=== PATIENT | female | born 1950 | race Caucasian/White ===

== ENCOUNTER 2023-08-05 09:35 | Inpatient (IN) | payer BC, MEDICARE ==
[2023-08-05] MEDS ORDERED: Sodium Chloride 0.9% 10 ML Syringe FLUSH PRN (09:43)
[2023-08-05] MEDS ORDERED: Meclizine 25 MG Tab PO ONE (09:44)
[2023-08-05 10:01] LABS: BASOPHILS ABSOLUTE AUTO 0.01 K/uL (0.00-0.20); BASOPHILS PERCENT AUTO 0.2 % (0.0-2.0); EOSINOPHILS ABSOLUTE AUTO 0.01 K/uL (0.00-0.50); EOSINOPHILS PERCENT AUTO 0.2 % (0.0-5.0); HEMATOCRIT 41.8 % (34.0-46.0); HEMOGLOBIN 14.7 g/dL (11.7-15.5); LYMPHOCYTES ABSOLUTE AUTO 1.64 K/uL (0.50-3.50); LYMPHOCYTES PERCENT AUTO 31.5 % (10.0-50.0); MEAN CORPUSCULAR HEMOGLOBIN 28.5 pg (28.2-33.3); MEAN CORPUSCULAR HGB CONC 35.2 g/dL (31.7-36.0); MONOCYTES ABSOLUTE AUTO 0.56 K/uL (0.00-1.00); MONOCYTES PERCENT AUTO 10.7 % (2.0-14.0); NEUTROPHILS ABSOLUTE AUTO 2.99 K/uL (1.40-7.00); NEUTROPHILS PERCENT AUTO 57.4 % (45.0-80.0); PLATELET COUNT,PLT 148 K/uL (150-350); RED BLOOD CELL COUNT 5.16 M/uL (3.77-5.09); RED CELL DISTRIBUTION WIDTH 13.1 % (11.2-14.1); WHITE BLOOD CELL COUNT,WBC 5.2 K/uL (4.0-10.2)
[2023-08-05] MEDS ORDERED: Sodium Chloride 0.9% 500 ML IV SCH (10:15)
[2023-08-05 10:23] LABS: ALBUMIN 3.2 g/dL (3.4-5.0); CALCIUM 9.3 mg/dL (8.5-10.1); CARBON DIOXIDE,CO2 30.4 mmol/L (21.0-32.0); CREATININE 2.03 mg/dL (0.51-1.17); EST CRCL DRUG DOSING (CG) 18.94 mL/min; MAGNESIUM 2.1 mg/dL (1.8-2.4); PROTEIN TOTAL,TP 7.2 g/dL (6.4-8.2)
[2023-08-05 10:26] LABS: ANION GAP 12.8 meq/L (7-15); POTASSIUM,K 2.2 mmol/L (3.5-5.1)
[2023-08-05] MEDS ORDERED: Potassium Bicarbonate/Cit Ac 20 MEQ Effervescent Tab PO ONE ×8 (10:26→23:00)
[2023-08-05] MEDS ORDERED: Acetaminophen 325 MG Tab PO ONE (10:35)
[2023-08-05 10:49] LABS: CORONAVIRUS COVID-19 NAA NEGATIVE (NEGATIVE); INFLUENZA A NAA POSITIVE (NEGATIVE); INFLUENZA B NAA NEGATIVE (NEGATIVE); RESPIRATORY SYNCYTIAL VIR NAA NEGATIVE (NEGATIVE)
[2023-08-05] MEDS ORDERED: Ondansetron 4 MG/2 ML SDV IVPUSH PRN (12:00)
[2023-08-05] MEDS: Sodium Chloride 0.9% 1,000 ML IV SCH ×2 (12:10→22:28)
[2023-08-05] MEDS ORDERED: Nitroglycerin 0.4 MG Tab.SL SL SCH (13:30)
[2023-08-05] MEDS ORDERED: Meclizine 25 MG Tab PO PRN (16:00)
[2023-08-05] MEDS: Metoprolol Tartrate 25 MG Tab PO SCH ×2 (17:20→17:27)
[2023-08-05] MEDS: Acetaminophen 325 MG Tab PO PRN (19:24)
[2023-08-05 19:44] LABS: BILIRUBIN,URINE NEGATIVE (NEGATIVE); COLOR,URINE YELLOW; GLUCOSE,URINE 500 mg/dL (NEGATIVE); KETONES,URINE NEGATIVE (NEGATIVE); LEUKOCYTE ESTERASE,URINE TRACE (NEGATIVE); NITRITE,URINE NEGATIVE (NEGATIVE); OCCULT BLOOD,URINE SMALL (NEGATIVE); PH,URINE 6.5 (5.0-9.0); PROTEIN,URINE >=300 mg/dL (NEGATIVE)
[2023-08-05 20:00] LABS: APPEARANCE,URINE TURBID
[2023-08-05] MEDS ORDERED: Insulin Glarg,Human.Rec.Analog 100 Unit/ML 10 ML Vial SUBCUT SCH (20:00)
[2023-08-05 20:01] LABS: RBC,URINE 0-5 /HPF
[2023-08-05 20:02] LABS: BACTERIA,URINE FEW /HPF (NONE TO FEW); WBC,URINE 20-30 /HPF
[2023-08-06] MEDS ORDERED: Potassium Bicarbonate/Cit Ac 20 MEQ Effervescent Tab PO ONE ×5 (06:00→20:00)
[2023-08-06] MEDS: Clopidogrel 75 MG Tab PO SCH (07:35)
[2023-08-06 07:54] LABS: ANION GAP 7.9 meq/L (7-15); CALCIUM 8.8 mg/dL (8.5-10.1); CARBON DIOXIDE,CO2 33.6 mmol/L (21.0-32.0); CREATININE 1.73 mg/dL (0.51-1.17); EST CRCL DRUG DOSING (CG) 24.26 mL/min; POTASSIUM,K 3.5 mmol/L (3.5-5.1)
[2023-08-06] MEDS: Metoprolol Tartrate 25 MG Tab PO SCH ×2 (08:30→18:25)
[2023-08-06] MEDS: Sodium Chloride 0.9% 1,000 ML IV SCH (10:56)
[2023-08-07] MEDS: Acetaminophen 325 MG Tab PO PRN ×2 (00:30→04:45)
[2023-08-07 07:52] LABS: CALCIUM 8.6 mg/dL (8.5-10.1); CARBON DIOXIDE,CO2 31.4 mmol/L (21.0-32.0); CREATININE 1.52 mg/dL (0.51-1.17); EST CRCL DRUG DOSING (CG) 27.61 mL/min; POTASSIUM,K 3.3 mmol/L (3.5-5.1)
[2023-08-07] MEDS: Metoprolol Tartrate 25 MG Tab PO SCH (07:52)
[2023-08-07] MEDS: Clopidogrel 75 MG Tab PO SCH (07:52)
[2023-08-07 08:10] LABS: ANION GAP 8.9 meq/L (7-15)
[2023-08-07] MEDS ORDERED: Potassium Bicarbonate/Cit Ac 20 MEQ Effervescent Tab PO ONE ×4 (09:38→14:30)
[2023-08-07] MEDS ORDERED: Magnesium Chloride 64 MG Tab.ER PO SCH (12:00)
[2023-08-07 12:53] VITALS: BP 158/69; PULSE 67
== END 2023-08-07 16:04 | disposition home or self-care (01) | DRG 194 ==
LOC: LL.ED 09:35 → LL.MS 11:13
PROVIDERS: ADMIT Emergency Medicine; ATTEND Emergency Medicine
DX: J10.1 Influenza due to other identified influenza virus with other respiratory manifestations (principal); N17.9 Acute kidney failure, unspecified; E86.0 Dehydration; E87.6 Hypokalemia; I25.2 Old myocardial infarction; R51.9 Headache, unspecified; I12.9 Hypertensive chronic kidney disease with stage 1 through stage 4 chronic kidney disease, or unspecified chronic kidney disease; E10.22 Type 1 diabetes mellitus with diabetic chronic kidney disease; E78.5 Hyperlipidemia, unspecified; N18.9 Chronic kidney disease, unspecified; Z79.82 Long term (current) use of aspirin; Z79.899 Other long term (current) drug therapy; Z79.02 Long term (current) use of antithrombotics/antiplatelets; Z11.52 Encounter for screening for COVID-19; Z79.4 Long term (current) use of insulin; Z95.5 Presence of coronary angioplasty implant and graft; Z98.49 Cataract extraction status, unspecified eye; Z90.89 Acquired absence of other organs; Z98.51 Tubal ligation status
CPT/HCPCS: 0241U; 36415; 71045; 80048; 80053; 81001; 81003; 82947; 83605; 83735; 83880; 84132; 84484; 85025; 87086; 93005; 93010; 96360; 97161-GP; 97530-GP; 99285-25; A9270-GY; J1815-GY; J7030; J7040

== ENCOUNTER 2024-12-01 08:55 | Emergency (ER) | payer MEDICARE ==
[2024-12-01 09:48] LABS: BASOPHILS ABSOLUTE AUTO 0.03 K/uL (0.00-0.20); BASOPHILS PERCENT AUTO 0.4 % (0.0-2.0); EOSINOPHILS ABSOLUTE AUTO 0.13 K/uL (0.00-0.50); EOSINOPHILS PERCENT AUTO 1.8 % (0.0-5.0); HEMOGLOBIN 14.3 g/dL (11.7-15.5); IMMATURE GRAN ABSOLUTE AUTO 0.01 10^3/uL (0.00-0.04); IMMATURE GRAN PERCENT AUTO 0.1 % (0.0-0.4); LYMPHOCYTES ABSOLUTE AUTO 2.45 K/uL (0.50-3.50); LYMPHOCYTES PERCENT AUTO 34.3 % (10.0-50.0); MEAN CORPUSCULAR HEMOGLOBIN 29.7 pg (28.2-33.3); MEAN CORPUSCULAR VOLUME 87.1 fL (84.0-98.0); MONOCYTES ABSOLUTE AUTO 0.74 K/uL (0.00-1.00); MONOCYTES PERCENT AUTO 10.4 % (2.0-14.0); NEUTROPHILS ABSOLUTE AUTO 3.78 K/uL (1.40-7.00); PLATELET COUNT,PLT 218 K/uL (150-350); RED BLOOD CELL COUNT 4.82 M/uL (3.77-5.09); RED CELL DISTRIBUTION WIDTH 13.1 % (11.2-14.1); WHITE BLOOD CELL COUNT,WBC 7.1 K/uL (4.0-10.2)
[2024-12-01 10:06] LABS: ALANINE AMINOTRANSFERASE,ALT 21 U/L (12-78); ALBUMIN 3.9 g/dL (3.4-5.0); ALKALINE PHOSPHATASE 57 IU/L (46-116); ASPARTATE AMNIOTRANSFERASE,AST 11 U/L (15-37); BILIRUBIN TOTAL 0.9 mg/dL (0.2-1.0); BLOOD UREA NITROGEN,BUN 22 mg/dL (7-18); CALCIUM 11.4 mg/dL (8.5-10.1); CARBON DIOXIDE,CO2 24.1 mmol/L (21.0-32.0); CHLORIDE,CL 101 mmol/L (98-107); CREATININE 1.81 mg/dL (0.51-1.17); GLUCOSE RANDOM 345 mg/dL (70-99); PROTEIN TOTAL,TP 8.1 g/dL (6.4-8.2); SODIUM,NA 131 mmol/L (136-145)
[2024-12-01 10:22] LABS: ANION GAP 12.9 meq/L (7-15); ESTIMATED GFR 29 mL/min (>=60)
[2024-12-01] MEDS ORDERED: 50% Dextrose in Water 50 ML Syringe IVPUSH PRN ×3 (10:35→16:39)
[2024-12-01] MEDS: Insulin Regular, Human 100 Units/ML 3 ML Vial IV ONE ×3 (11:00→17:04)
[2024-12-01] MEDS: Calcium Gluconate 10% 1 GM/10 ML SDV IVPUSH ONE ×3 (11:07→16:46)
[2024-12-01] MEDS: Sodium Chloride 0.9% 10 ML Syringe FLUSH PRN (11:07)
[2024-12-01] MEDS: Glucagon,Human Recombinant 1 MG Vial IM PRN ×2 (12:24→15:51)
[2024-12-01] MEDS: Sodium Chloride 0.9% 1,000 ML IV SCH ×2 (13:02→17:37)
[2024-12-01] MEDS: Sodium Zirconium Cyclosilicate 10 GM Packet PO ONE (15:13)
[2024-12-01] MEDS ORDERED: Glucagon,Human Recombinant 1 MG Vial IM PRN (16:39)
[2024-12-01 17:13] VITALS: BP 132/56
[2024-12-01] MEDS: Albuterol 0.083% 2.5 MG/3 ML Neb Soln NEB ONE (17:48)
[2024-12-01 18:22] LABS: ANION GAP 14.8 meq/L (7-15); BLOOD UREA NITROGEN,BUN 24 mg/dL (7-18); CALCIUM 11.6 mg/dL (8.5-10.1); CARBON DIOXIDE,CO2 20.4 mmol/L (21.0-32.0); CHLORIDE,CL 105 mmol/L (98-107); CREATINE KINASE,CK 63 U/L (26-308); CREATININE 1.55 mg/dL (0.51-1.17); ESTIMATED GFR 35 mL/min (>=60); GLUCOSE RANDOM 234 mg/dL (70-99); POTASSIUM,K 5.2 mmol/L (3.5-5.1); SODIUM,NA 135 mmol/L (136-145)
[2024-12-01 19:19] VITALS: PULSE 97
== END 2024-12-01 20:20 | disposition home or self-care (01) ==
LOC: LL.ED 08:55
DX: E87.5 Hyperkalemia (principal); E11.22 Type 2 diabetes mellitus with diabetic chronic kidney disease; I12.9 Hypertensive chronic kidney disease with stage 1 through stage 4 chronic kidney disease, or unspecified chronic kidney disease; N18.9 Chronic kidney disease, unspecified; I25.2 Old myocardial infarction; Z79.82 Long term (current) use of aspirin; Z79.899 Other long term (current) drug therapy; Z79.02 Long term (current) use of antithrombotics/antiplatelets; Z79.4 Long term (current) use of insulin; Z95.5 Presence of coronary angioplasty implant and graft
CPT/HCPCS: 36415; 80048; 80053; 82550; 82947; 83735; 84132; 85025; 93005; 94640; 96361; 96372; 96374; 96376; 99285-25; A9270-GY; J0612; J1610; J1815-GY; J7030